=== PATIENT | male | born 1950 | race Caucasian/White ===

== ENCOUNTER 2016-08-20 09:52 | Inpatient (IN) | payer MEDICARE ==
[~2016-08-20] VITALS: Ht 180.3 cm; Wt 115.8 kg
[2016-08-20] VITALS (7 sets, daily range): BP systolic 123–155; BP diastolic 68–91; PULSE 112–136; RESP 15–20; TEMP 97.9–100.8; O2SAT 93–98
[2016-08-20 10:12] LABS: BLOOD, URINE LARGE (NEG); GLUCOSE,URINE NEG (NEG); KETONE, URINE 40 mg/dL (NEG); PH, URINE 5.5 (5.0-8.5)
[2016-08-20 10:17] LABS: NITRITE,URINE POS (NEG)
[2016-08-20 10:18] LABS: METHOD OF COLLECTION CLEAN CATCH; URINE COLOR YELLOW (YELLW/STRAW); WBC, URINE INNUM /hpf (0-5)
[2016-08-20 10:19] LABS: BACTERIA, URINE MANY /hpf; COMMENT (UR) CULTURE INDICATED; CULTURE IF INDICATED CULTURE INDICATED; SQUAMOUS EPITHELIAL CELL URINE 0-5 /hpf (0-5)
[2016-08-20] MEDS ORDERED: LEVEMIR SQ (10:32)
[2016-08-20] MEDS ORDERED: [UNRECOGNIZED DRUG - CODE] PO (10:32)
[2016-08-20] MEDS ORDERED: METF500T PO (10:32)
[2016-08-20] MEDS ORDERED: ATOR20TA15 PO (10:32)
[2016-08-20] MEDS ORDERED: BENI20TA3 PO (10:32)
[2016-08-20] MEDS ORDERED: LOSA50TA2 PO (10:32)
[2016-08-20] MEDS ORDERED: PIPERACIL-TAZO 4.5 GM PREMIX 100 ML IV STA (11:01)
--- NOTE | 2016-08-20 11:09 | PD ---
HPI Chief Complaint: Complaint Time Seen by Provider: 10:54 Travel History International Travel<30 days: No Contact w/Intl Traveler<30days: No Traveled to known affect area: No History of Present Illness HPI Patient is a 66-year-old male who presents to emergency room with complaints of not feeling well. Patient reports that he has been having dysuria, urinary urgency and frequency for the past week. Reports that he currently is not on antibiotics. Patient reports that he is here in [place] from [place]. Patient reports that on Wednesday, he had an MRI/fusion prostate biopsy while in [place] for evaluation of prostate cancer. Patient reports that prior to his surgery, he was given antibiotics as he did have a recent right hip surgery in April. Patient reports that he flew to [place] as he had a family illness and has been here in [place] since Wednesday. He was not sent home on any antibiotics for after his procedure. Patient reports that after he landed off the plane on Wednesday, his legs feel crampy. Reports that on Wednesday, he was not feeling well and laid in bed all day. Patient reports that he felt weak, reports that he had been having fevers with a tmax of 102.8. Reports that he did take ibuprofen for fever but once the medications ran out - he would develop fever again. Patient denies chest pain or shortness of breath. Denies cough or congestion. Reports that he went to urgent care center this morning and was told that he had a "raging UTI" and that he would have to go to the hospital for IV antibiotics. PFSH Past Medical History High Cholesterol: Yes Diabetes: Yes Patient Takes Glucophage: Yes Hypertension: Yes Influenza Vaccination: No Past Surgical History Abdominal Surgery: Yes (MULITIPLE HERNIA REPAIRS, WITH MUSCLES TAKEN FROM BILAT LEGS) Social History Alcohol Use: Yes (SOCIAL) Tobacco Use: No Substance Use: No Allergies-Medications (Allergen,Severity, Reaction): Coded Allergies: No Known Allergies (Unverified , 08/20/16) Reported Meds & Prescriptions Reported Meds & Active Scripts Active Reported Losartan-Hydrochlorothiazide 50-12.5 Mg Tab 1 Tab PO DAILY Matzim LA (Diltiazem ER 24 HR) 360 Mg Aashish 360 Mg PO DAILY Levemir Inj (Insulin Detemir) 1,000 unit/ 10 ML Vial 40 Units SQ BID Do not mix with any other Insulin. Metformin (Metformin HCl) 500 Mg Tab 500 Mg PO QID With meals Benicar Hct (Olmesartan-Hydrochlorothiazide) 20-12.5 mg Tab 1 Tab PO DAILY Atorvastatin (Atorvastatin Calcium) 20 Mg Tab 20 Mg PO HS Review of Systems General / Constitutional: Positive: Fever, Chills Eyes: No: Visual changes HENT: No: Headaches Cardiovascular: No: Chest Pain or Discomfort Respiratory: No: Shortness of Breath Gastrointestinal: No: Abdominal Pain Genitourinary: Positive: Urgency, Frequency, Dysuria, Decreased Urinary Output , Hesitancy Musculoskeletal: No: Pain Skin: No Rash Neurologic: No: Weakness Psychiatric: No: Depression Endocrine: No: Polydipsia Hematologic/Lymphatic: No: Easy Bruising Physical Exam Narrative GENERAL: Moderate distress SKIN: Focused skin assessment warm/dry. HEAD: Atraumatic. Normocephalic. EYES: Pupils equal and round. No scleral icterus. No injection or drainage. ENT: No nasal bleeding or discharge. Mucous membranes pink and moist. NECK: Trachea midline. No JVD. CARDIOVASCULAR: Tachycardic. No murmur appreciated. RESPIRATORY: No accessory muscle use. Clear to auscultation. Breath sounds equal bilaterally. GASTROINTESTINAL: Abdomen soft, non-tender, nondistended. Hepatic and splenic margins not palpable. MUSCULOSKELETAL: No obvious deformities. No clubbing. No cyanosis. No edema. NEUROLOGICAL: Awake and alert.. Normal speech. PSYCHIATRIC: Appropriate mood and affect; insight and judgment normal. Data Data Last Documented VS Vital Signs Date Time Temp Pulse Resp B/P Pulse Ox O2 Delivery O2 Flow Rate FiO2 08/20/16 12:36 98.3 112 15 143/68 98 Room Air Orders Urinalysis - C+S If Indicated (08/20/16 10:03) Urine Culture (08/20/16 10:06) Complete Blood Count With Diff (08/20/16 11:01) Comprehensive Metabolic Panel (08/20/16 11:01) Lactic Acid Sepsis Protocol (08/20/16 11:01) Influenzae A/B Antigen (08/20/16 11:01) Blood Culture (08/20/16 11:01) Chest, Single Ap (08/20/16 11:01) Blood Glucose (08/20/16 11:01) Ecg Monitoring (08/20/16 11:01) Iv Access Insert/Monitor (08/20/16 11:01) Oximetry (08/20/16 11:01) Oxygen Administration (08/20/16 11:01) Piperacil-Tazo 4.5 Gm Premix (Zosyn 4.5 (08/20/16 11:01) Sodium Chlor 0.9% 1000 Ml Inj (Ns 1000 M (08/20/16 11:15) Sodium Chlor 0.9% 1000 Ml Inj (Ns 1000 M (08/20/16 11:15) Us Leg Venous Doppler Bilat (08/20/16 ) Labs Laboratory Tests Test 08/20/16 08/20/16 10:06 11:28 Urine Collection Type CLEAN CATCH Urine Color YELLOW Urine Turbidity MARKED Urine pH 5.5 Urine Specific [place] 1.026 Urine Protein 300 OR GREATER mg/dL Urine Glucose (UA) NEG mg/dL Urine Ketones 40 mg/dL Urine Occult Blood LARGE Urine Nitrite POS Urine Bilirubin NEG Urine Leukocyte Esterase MOD Urine RBC 25-49 /hpf Urine WBC INNUM /hpf Urine WBC Clumps MOD Urine Squamous Epithelial 0-5 /hpf Cells Urine Renal Epithelial Cells 6-8 /hpf Urine Bacteria MANY /hpf Microscopic Urinalysis Comment CULTURE INDICATED Urine Collection Time 10:06 White Blood Count 14.7 TH/MM3 Red Blood Count 5.04 MIL/MM3 Hemoglobin 15.7 GM/DL Hematocrit 45.5 % Mean Corpuscular Volume 90.2 FL Mean Corpuscular Hemoglobin 31.1 PG Mean Corpuscular Hemoglobin 34.5 % Concent Red Cell Distribution Width 13.4 % Platelet Count 153 TH/MM3 Mean Platelet Volume 8.5 FL Neutrophils (%) (Auto) 86.9 % Lymphocytes (%) (Auto) 6.3 % Monocytes (%) (Auto) 6.6 % Eosinophils (%) (Auto) 0.0 % Basophils (%) (Auto) 0.2 % Neutrophils # (Auto) 12.8 TH/MM3 Lymphocytes # (Auto) 0.9 TH/MM3 Monocytes # (Auto) 1.0 TH/MM3 Eosinophils # (Auto) 0.0 TH/MM3 Basophils # (Auto) 0.0 TH/MM3 CBC Comment DIFF FINAL Differential Comment Sodium Level 137 MEQ/L Potassium Level 3.8 MEQ/L Chloride Level 101 MEQ/L Carbon Dioxide Level 27.7 MEQ/L Anion Gap 8 MEQ/L Blood Urea Nitrogen 15 MG/DL Creatinine 0.87 MG/DL Estimat Glomerular Filtration 88 ML/MIN Rate Random Glucose 194 MG/DL Lactic Acid Level 1.7 mmol/L Calcium Level 9.3 MG/DL Total Bilirubin 1.1 MG/DL Aspartate Amino Transf 11 U/L (AST/SGOT) Alanine Aminotransferase 18 U/L (ALT/SGPT) Alkaline Phosphatase 70 U/L Total Protein 7.2 GM/DL Albumin 3.3 GM/DL MDM Medical Decision Making Medical Screen Exam Complete: Yes Emergency Medical Condition: Yes Interpretation(s) Vital Signs Date Time Temp Pulse Resp B/P Pulse Ox O2 Delivery O2 Flow Rate FiO2 08/20/16 09:59 97.9 136 18 123/81 95 Differential Diagnosis Urosepsis, PE, DVT, electrolyte abnormality, pneumonia Narrative Course Patient is a 66-year-old male from [place] with history of a recent MRI/fusion and prostate biopsy on Wednesday at [place] presents to ER not feeling well. Reports multiple complaints: 1) Patient reports that he has been having increased cramps to his calf since Wednesday after he landed here in [place]. Ultrasound of legs ordered to rule out DVT. 2) UTI: Patient reports that he was seen at an urgent care center this morning and was told that he has a "raging UTI", patient does have a UTI while in the emergency today, urine culture sent. Patient is tachycardic, was febrile at home, essentially patient presents with presumed sepsis. We'll treat with Zosyn as patient did have recent urological procedure. Patient has been pancultured at this time given his vital signs. Patient is tachycardic on exam , tachycardic secondary to sepsis versus PE. Lactic acidosis was ordered, IV fluids ordered for patient as well. Laboratory Tests Test 08/20/16 08/20/16 10:06 11:28 Urine Collection Type CLEAN CATCH Urine Color YELLOW (YELLW/STRAW) Urine Turbidity MARKED (CLEAR) Urine pH 5.5 (5.0-8.5) Urine Specific [place] 1.026 (1.002-1.035) Urine Protein 300 OR GREATER mg/dL (NEG-TRACE) Urine Glucose (UA) NEG mg/dL (NEG) Urine Ketones 40 mg/dL (NEG) Urine Occult Blood LARGE (NEG) Urine Nitrite POS (NEG) Urine Bilirubin NEG (NEG) Urine Leukocyte Esterase MOD (NEG) Urine RBC 25-49 /hpf (0-3) Urine WBC INNUM /hpf (0-5) Urine WBC Clumps MOD (NONE) Urine Squamous Epithelial 0-5 /hpf (0-5) Cells Urine Renal Epithelial Cells 6-8 /hpf (NONE) Urine Bacteria MANY /hpf (NONE) Microscopic Urinalysis Comment CULTURE INDICATED Urine Collection Time 10:06 White Blood Count 14.7 TH/MM3 (4.0-11.0) Red Blood Count 5.04 MIL/MM3 (4.50-5.90) Hemoglobin 15.7 GM/DL (13.0-17.0) Hematocrit 45.5 % (39.0-51.0) Mean Corpuscular Volume 90.2 FL (80.0-100.0) Mean Corpuscular Hemoglobin 31.1 PG (27.0-34.0) Mean Corpuscular Hemoglobin 34.5 % Concent (32.0-36.0) Red Cell Distribution Width 13.4 % (11.6-17.2) Platelet Count 153 TH/MM3 (150-450) Mean Platelet Volume 8.5 FL (7.0-11.0) Neutrophils (%) (Auto) 86.9 % (16.0-70.0) Lymphocytes (%) (Auto) 6.3 % (9.0-44.0) Monocytes (%) (Auto) 6.6 % (0.0-8.0) Eosinophils (%) (Auto) 0.0 % (0.0-4.0) Basophils (%) (Auto) 0.2 % (0.0-2.0) Neutrophils # (Auto) 12.8 TH/MM3 (1.8-7.7) Lymphocytes # (Auto) 0.9 TH/MM3 (1.0-4.8) Monocytes # (Auto) 1.0 TH/MM3 (0-0.9) Eosinophils # (Auto) 0.0 TH/MM3 (0-0.4) Basophils # (Auto) 0.0 TH/MM3 (0-0.2) CBC Comment DIFF FINAL Differential Comment Sodium Level 137 MEQ/L (136-145) Potassium Level 3.8 MEQ/L (3.5-5.1) Chloride Level 101 MEQ/L (98-107) Carbon Dioxide Level 27.7 MEQ/L (21.0-32.0) Anion Gap 8 MEQ/L (5-15) Blood Urea Nitrogen 15 MG/DL (7-18) Creatinine 0.87 MG/DL (0.60-1.30) Estimat Glomerular Filtration 88 ML/MIN (>89) Rate Random Glucose 194 MG/DL (74-106) Lactic Acid Level 1.7 mmol/L (0.4-2.0) Calcium Level 9.3 MG/DL (8.5-10.1) Total Bilirubin 1.1 MG/DL (0.2-1.0) Aspartate Amino Transf 11 U/L (15-37) (AST/SGOT) Alanine Aminotransferase 18 U/L (12-78) (ALT/SGPT) Alkaline Phosphatase 70 U/L (45-117) Total Protein 7.2 GM/DL (6.4-8.2) Albumin 3.3 GM/DL (3.4-5.0) Microbiology Date/Time Procedure Status Source Growth 08/20/16 10:06 Urine Culture Received Urine Clean Catch Pending 08/20/16 11:15 Aerobic Blood Culture Received Blood Peripheral Pending 08/20/16 11:15 Anaerobic Blood Culture Received Blood Peripheral Pending 08/20/16 11:28 Aerobic Blood Culture Received Blood Peripheral Pending 08/20/16 11:28 Anaerobic Blood Culture Received Blood Peripheral Pending 08/20/16 11:28 Influenza Types A,B Antigen (INA) - Final Complete Nasal Aspirate NEGATIVE FOR FLU A AND B ANTIGEN.... Last Impressions Chest X-Ray 08/20/16 1101 Signed Impressions: Service Date/Time: August 11:20 - CONCLUSION: 1. No acute cardiopulmonary disease. 2. Elevation of the right hemidiaphragm. Walter Morris MD Lower Extremity Ultrasound 08/20/16 0000 Signed Impressions: Service Date/Time: August 12:02 - CONCLUSION: No evidence of deep venous thrombosis within the lower extremities. Walter Morris MD Sepsis Criteria SIRS Criteria (2 or more): Heart rate over 90, WBC > 12160, < 4000 or > 10% bands Criteria Outcome: Meets sepsis criteria Physician Communication Physician Communication case reviewed with dr romero who accepts pt to service Diagnosis Primary Impression: Sepsis Qualified Code: A41.9 - Sepsis, due to unspecified organism Additional Impression: UTI (urinary tract infection) Qualified Code: N30.01 - Acute cystitis with hematuria Admitting Information Admitting Physician Requests: Admit Joy Ceron DO Aug 20, 2016 11:09
[2016-08-20] MEDS ORDERED: SODIUM CHLOR 0.9% 1000 ML INJ 1,000 ML IV ONE ×2 (11:15)
--- NOTE | 2016-08-20 11:33 | RADHPO ---
EXAM DATE/TIME: 08/20/2016 11:20 [facility] COMPARISON: No previous studies available for comparison. INDICATIONS : Fever; possible infection post prostate biopsy. MEDICAL HISTORY : Hypertension. Diabetes mellitus type II. SURGICAL HISTORY : None. ENCOUNTER: Initial ACUITY: 1 day PAIN SCORE: 0/10 LOCATION: Bilateral chest FINDINGS: There is elevation of the right hemidiaphragm. The heart and mediastinal structures are normal. The pulmonary vascular pattern is normal. The lungs are clear. CONCLUSION: 1. No acute cardiopulmonary disease. 2. Elevation of the right hemidiaphragm. Walter Morris MD on August 20, 2016 at 11:26 Board Certified Radiologist. This report was verified electronically.
[2016-08-20 11:35] LABS: AUTOMATED NEUTROPHIL # 12.8 TH/MM3 (1.8-7.7); BASOPHIL % 0.2 % (0.0-2.0); HEMATOCRIT 45.5 % (39.0-51.0); LYMPH % 6.3 % (9.0-44.0); LYMPHOCYTE # 0.9 TH/MM3 (1.0-4.8); MEAN CELL VOLUME 90.2 FL (80.0-100.0); MEAN CORPUSCULAR HEMOGLOBIN 31.1 PG (27.0-34.0); MEAN CORPUSCULAR HGB CONC 34.5 % (32.0-36.0); MONO % 6.6 % (0.0-8.0); NEUT % 86.9 % (16.0-70.0); PLATELET COUNT 153 TH/MM3 (150-450); RED BLOOD COUNT 5.04 MIL/MM3 (4.50-5.90); RED CELL DISTRIBUTION WIDTH 13.4 % (11.6-17.2); WHITE BLOOD COUNT 14.7 TH/MM3 (4.0-11.0)
[2016-08-20 11:37] LABS: HEMO FLAGS DIFF FINAL
[2016-08-20 11:43] LABS: CHLORIDE 101 MEQ/L (98-107); POTASSIUM 3.8 MEQ/L (3.5-5.1); SODIUM (NA) 137 MEQ/L (136-145)
[2016-08-20 11:47] LABS: ANION GAP 8 MEQ/L (5-15); BICARBONATE 27.7 MEQ/L (21.0-32.0); BLOOD UREA NITROGEN 15 MG/DL (7-18)
[2016-08-20 11:50] LABS: ALT (GPT) 18 U/L (12-78); AST (GOT) 11 U/L (15-37); GLOMERULAR FILTRATION RATE 88 ML/MIN (>89)
[2016-08-20 11:51] LABS: TOTAL BILIRUBIN ADULT 1.1 MG/DL (0.2-1.0)
[2016-08-20 11:53] LABS: ALKALINE PHOSPHATASE 70 U/L (45-117)
--- NOTE | 2016-08-20 12:24 | RADHPO ---
EXAM DATE/TIME: 08/20/2016 12:02 [facility] COMPARISON: No previous studies available for comparison. INDICATIONS : Bilateral lower extremity edema. MEDICAL HISTORY : Hypercholesterolemia. Hypertension. Diabetes. SURGICAL HISTORY : Hernia repair. Right hip surgery. ENCOUNTER: Initial ACUITY: 1 day PAIN SCORE: 3/10 LOCATION: Bilateral legs. TECHNIQUE: Venous ultrasound of the left and right leg was performed from the inguinal ligament to the proximal calf. Real-time, color Doppler and spectral tracing, compression and augmentation techniques were us ed. FINDINGS: RIGHT LEG: There is normal compressibility of the deep venous system from the inguinal region to the proximal ca lf. No echogenic clot is seen in the lumen of the common femoral, femoral, popliteal, and posterior tibial veins. There is a normal response of the venous system to proximal and distal augmentation an d respiration. LEFT LEG: There is normal compressibility of the deep venous system from the inguinal region to the proximal ca lf. No echogenic clot is seen in the lumen of the common femoral, femoral, popliteal, and posterior tibial veins. There is a normal response of the venous system to proximal and distal augmentation an d respiration. CONCLUSION: No evidence of deep venous thrombosis within the lower extremities. Waltre Morris MD on August 20, 2016 at 12:22 Board Certified Radiologist. This report was verified electronically.
[2016-08-20] MEDS ORDERED: hydrALAZINE HCL 20 MG/ML VIAL IV PRN (12:45)
[2016-08-20] MEDS ORDERED: GLUCAGON 1 MG/ML VIAL OTHER PRN (12:45)
[2016-08-20] MEDS ORDERED: BISACODYL 10 MG SUPP RECTAL PRN (12:45)
[2016-08-20] MEDS ORDERED: MORPHINE SULFATE 4 MG/ML INJ IV PRN (12:45)
[2016-08-20] MEDS ORDERED: cloNIDine HCL 0.1 MG TAB PO PRN (12:45)
[2016-08-20] MEDS ORDERED: ENALAPRILAT 1.25 MG/ML VIAL IV PRN (12:45)
[2016-08-20] MEDS ORDERED: ONDANSETRON HCL 4 MG/2 ML VIAL IVP PRN (12:45)
[2016-08-20] MEDS ORDERED: SODIUM CHLORIDE 0.9% FLUSH 10 ML FLUSH IV FLUSH PRN (12:45)
[2016-08-20] MEDS ORDERED: NALOXONE HCL 0.4 MG/ML AMP IV PRN (12:45)
[2016-08-20] MEDS ORDERED: DEXTROSE 50% IN WATER 50 ML VIAL(D50) IV PUSH PRN (12:45)
[2016-08-20] MEDS: SODIUM CHLOR 0.9% 1000 ML INJ 1,000 ML IV SCH (12:58)
[2016-08-20] MEDS: ACETAMINOPHEN 325 MG TAB PO PRN (12:58)
[2016-08-20] MEDS: DOCUSATE SODIUM 100 MG CAP PO SCH ×2 (13:02→21:31)
--- NOTE | 2016-08-20 14:40 | HHI.HP ---
[facility] Service [facility] Primary Care Physician Non-Staff Admission Diagnosis Sepsis from UTI Diagnoses: Chief Complaint: UTI symptoms Travel History International Travel<30 Days: No Contact w/Intl Traveler <30 Da: No Traveled to Known Affected Are: No Sepsis Criteria SIRS Criteria (2 or more): Temp > 100.9 or < 96.8, WBC > 69183, < 4000 or > 10 % bands Sepsis Criteria (SIRS+source): Infect source susp/known Criteria Outcome: Meets SIRS criteria, Meets sepsis criteria History of Present Illness This is a 66-year-old male who presents to emergency room with UTI symptoms. Patient reports that he has been having dysuria, urinary urgency and frequency. He is here in [place] from [place] because of family situation. Patient reports that on Wednesday, he had an MRI/US fusion transrectal prostate biopsy while in [place] for evaluation of prostate cancer secondary to elevated PSA and strong family history of prostate cancer. Patient reports that prior to his surgery, he was given po and IV antibiotics as he did have a recent right hip surgery in April. The following day he flew to [place] and noted bilateral lower extremity cramping. The next day he did not feel well and laid in bed all day associated with nausea, dizziness and achiness. He had fever and chills and took ibuprofen which provided temporary relief. Denies abdominal , back and right hip pain. He went to urgent care center this morning and was told that he had a "raging UTI" and that he would have to go to the hospital for IV antibiotics. Review of Systems Constitutional: COMPLAINS OF: Diaphoretic episodes, Fatigue, Fever, Chills, Dizziness, DENIES: Weight gain, Weight loss, Change in appetite, Night Sweats Endocrine: DENIES: Heat/cold intolerance, Polydipsia, Polyuria, Polyphagia Eyes: DENIES: Blurred vision, Diplopia, Vision loss, Photosensitivity Ears, nose, mouth, throat: DENIES: Tinnitus, Vertigo, Throat pain, Hoarseness, Epistaxis, Odynophagia Respiratory: DENIES: Cough, Wheezing, Hemoptysis, Sputum production, Shortness of breath Cardiovascular: DENIES: Chest pain, Palpitations, Syncope, Dyspnea on Exertion , PND, Lower Extremity Edema, Orthopnea, Claudication Gastrointestinal: COMPLAINS OF: Nausea, DENIES: Abdominal pain, Black stools, Bloody stools, Constipation, Diarrhea, Vomiting, Difficulty Swallowing, Anorexia Genitourinary: COMPLAINS OF: Urinary frequency, Urgency, Dysuria, DENIES: Urinary incontinence, Hematuria, Nocturia, Penile Discharge Integumentary: DENIES: Rash Neurologic: DENIES: Headache, Localized weakness, Seizures, Tremor, Poor Balance Psychiatric: DENIES: Anxiety, Confusion, Depression, Hallucinations, Agitation , Suicidal Ideation, Homicidal Ideation, Delusions Past Family Social History Past Medical History History of hyperlipidemia, diabetes mellitus and hypertension Past Surgical History Hernia repair with transposition of muscles from bilateral thighs Reported Medications Losartan-Hydrochlorothiazide 50-12.5 Mg Tab 1 Tab PO DAILY Matzim LA (Diltiazem ER 24 HR) 360 Mg Aashish 360 Mg PO DAILY Levemir Inj (Insulin Detemir) 1,000 unit/ 10 ML Vial 40 Units SQ BID Do not mix with any other Insulin. Metformin (Metformin HCl) 500 Mg Tab 500 Mg PO QID With meals Benicar Hct (Olmesartan-Hydrochlorothiazide) 20-12.5 mg Tab 1 Tab PO DAILY Atorvastatin (Atorvastatin Calcium) 20 Mg Tab 20 Mg PO HS Allergies: Coded Allergies: No Known Allergies (Unverified , 08/20/16) Family History Also lung cancer and coronary artery disease Social History Occasional alcohol use. Does not smoke or use illicit drugs Physical Exam Vital Signs Vital Signs Date Time Temp Pulse Resp B/P Pulse Ox O2 Delivery O2 Flow Rate FiO2 08/20/16 13:52 98.3 108 15 135/71 98 08/20/16 12:36 98.3 112 15 143/68 98 Room Air 08/20/16 12:30 98 21 08/20/16 11:15 98 Room Air 08/20/16 11:15 98 Room Air 08/20/16 09:59 97.9 136 18 123/81 95 Physical Exam GENERAL: This is a well-nourished, well-developed patient, in no apparent distress. Looks weak SKIN: No rashes, ecchymoses or lesions. Cool and dry. HEAD: Atraumatic. Normocephalic. No temporal or scalp tenderness. EYES: Pupils equal round and reactive. Extraocular motions intact. No scleral icterus. No injection or drainage. ENT: Nose without bleeding, purulent drainage or septal hematoma. Throat without erythema, tonsillar hypertrophy or exudate. Uvula midline. Airway patent. NECK: Trachea midline. No JVD or lymphadenopathy. Supple, nontender, no meningeal signs. CARDIOVASCULAR: Regular rate and rhythm without murmurs, gallops, or rubs. RESPIRATORY: Clear to auscultation. Breath sounds equal bilaterally. No wheezes , rales, or rhonchi. GASTROINTESTINAL: Abdomen soft, non-tender, nondistended. Reducible incisional hernia. No guarding. CVA tenderness MUSCULOSKELETAL: Extremities without clubbing, cyanosis, or edema. No joint tenderness, effusion, or edema noted. No calf tenderness. Negative Homans sign bilaterally. NEUROLOGICAL: Awake and alert. Cranial nerves II through XII intact. Motor and sensory grossly within normal limits. Five out of 5 muscle strength in all muscle groups. Normal speech. Laboratory Laboratory Tests Test 08/20/16 08/20/16 10:06 11:28 Urine Collection Type CLEAN CATCH Urine Color YELLOW Urine Turbidity MARKED Urine pH 5.5 Urine Specific [place] 1.026 Urine Protein 300 OR GREATER Urine Glucose (UA) NEG Urine Ketones 40 Urine Occult Blood LARGE Urine Nitrite POS Urine Bilirubin NEG Urine Leukocyte Esterase MOD Urine RBC 25-49 Urine WBC INNUM Urine WBC Clumps MOD Urine Squamous Epithelial 0-5 Cells Urine Renal Epithelial Cells 6-8 Urine Bacteria MANY Microscopic Urinalysis Comment CULTURE INDICATED Urine Collection Time 10:06 White Blood Count 14.7 Red Blood Count 5.04 Hemoglobin 15.7 Hematocrit 45.5 Mean Corpuscular Volume 90.2 Mean Corpuscular Hemoglobin 31.1 Mean Corpuscular Hemoglobin 34.5 Concent Red Cell Distribution Width 13.4 Platelet Count 153 Mean Platelet Volume 8.5 Neutrophils (%) (Auto) 86.9 Lymphocytes (%) (Auto) 6.3 Monocytes (%) (Auto) 6.6 Eosinophils (%) (Auto) 0.0 Basophils (%) (Auto) 0.2 Neutrophils # (Auto) 12.8 Lymphocytes # (Auto) 0.9 Monocytes # (Auto) 1.0 Eosinophils # (Auto) 0.0 Basophils # (Auto) 0.0 CBC Comment DIFF FINAL Differential Comment Sodium Level 137 Potassium Level 3.8 Chloride Level 101 Carbon Dioxide Level 27.7 Anion Gap 8 Blood Urea Nitrogen 15 Creatinine 0.87 Estimat Glomerular Filtration 88 Rate Random Glucose 194 Lactic Acid Level 1.7 Calcium Level 9.3 Total Bilirubin 1.1 Aspartate Amino Transf 11 (AST/SGOT) Alanine Aminotransferase 18 (ALT/SGPT) Alkaline Phosphatase 70 Total Protein 7.2 Albumin 3.3 Date/Time Procedure Status Source Growth 08/20/16 11:28 Influenza Types A,B Antigen (INA) - Final Complete Nasal Aspirate NEGATIVE FOR FLU A AND B ANTIGEN.... 08/20/16 11:28 Aerobic Blood Culture Received Blood Peripheral Pending 08/20/16 11:28 Anaerobic Blood Culture Received Blood Peripheral Pending 08/20/16 10:06 Urine Culture Received Urine Clean Catch Pending Result Diagram: 08/20/16 1128 08/20/16 1128 Imaging Last Impressions Chest X-Ray 08/20/16 1101 Signed Impressions: Service Date/Time: August 11:20 - CONCLUSION: 1. No acute cardiopulmonary disease. 2. Elevation of the right hemidiaphragm. Walter Morris MD Lower Extremity Ultrasound 08/20/16 0000 Signed Impressions: Service Date/Time: August 12:02 - CONCLUSION: No evidence of deep venous thrombosis within the lower extremities. Walter Morris MD Assessment and Plan Problem List: (1) UTI (urinary tract infection) ICD Code: N39.0 Status: Acute (2) Sepsis ICD Code: A41.9 Status: Acute Assessment and Plan This is a 66-year-old male who presents to emergency room with UTI symptoms. Also meets criteria for sepsis. He had recent MRI/US fusion transrectal prostate biopsy last Wednesday Sepsis secondary to UTI. Continue IVs Zosyn and monitor cultures. Consider CT scan of the abdomen pelvis if the improvement within 24 hours. Pain management with Lortab and IV morphine. Chronic medical conditions of hyperlipidemia, diabetes mellitus and hypertension. Continue outpatient medications as appropriate. Hold antihypertensives for now and consider restarting tomorrow. Monitor fingersticks with Surgicel coverage Deconditioning secondary to sepsis. Physical therapy evaluation DVT prophylaxis with SCD and early ambulation. Consider pharmacological prophylaxis Discussed Condition With pt and sister Physician Certification 2 Midnight Certification Type: Admission for Inpatient Services Order for Inpatient Services The services are ordered in accordance with Medicare regulations or non- Medicare payer requirements, as applicable. In the case of services not specified as inpatient-only, they are appropriately provided as inpatient services in accordance with the 2-midnight benchmark. Estimated LOS (days): 2 days is the estimated time the patient will need to remain in the hospital, assuming treatment plan goals are met and no additional complications. Post-Hospital Plan: Home Health Problem Qualifiers (1) UTI (urinary tract infection): Qualified Code: N30.01 - Acute cystitis with hematuria (2) Sepsis: Qualified Code: A41.9 - Sepsis, due to unspecified organism Anselmo Mcdermott MD Aug 20, 2016 14:40
[2016-08-20] MEDS: INSULIN ASPART SUPPLEMENTAL SCALE SQ SCH ×2 (15:35→21:30)
[2016-08-20] MEDS: metFORMIN HCL 500 MG TAB PO SCH (18:28)
[2016-08-20] MEDS: PIPERACIL-TAZO 3.375 GM PREMIX 50 ML IV SCH ×2 (18:28→23:45)
[2016-08-20] MEDS: SODIUM CHLORIDE 0.9% FLUSH 10 ML FLUSH IV FLUSH SCH (21:00)
[2016-08-20] MEDS: INSULIN DETEMIR 100 UNITS/ML VIAL SQ SCH (21:29)
[2016-08-20] MEDS: ATORVASTATIN 20 MG TAB PO SCH (21:31)
[2016-08-20] MEDS: ACETAMINOPHEN/HYDROcodone 325 MG/5 MG TAB PO PRN (21:32)
[2016-08-21] VITALS (12 sets, daily range): BP systolic 96–181; BP diastolic 58–96; PULSE 98–132; RESP 17–26; TEMP 97.7–103.4; O2SAT 92–96
[2016-08-21] MEDS: ACETAMINOPHEN 325 MG TAB PO PRN ×2 (04:27→11:14)
[2016-08-21] MEDS: PIPERACIL-TAZO 3.375 GM PREMIX 50 ML IV SCH ×2 (05:50→11:28)
[2016-08-21] MEDS: INSULIN ASPART SUPPLEMENTAL SCALE SQ SCH ×4 (06:25→21:48)
[2016-08-21] MEDS: ACETAMINOPHEN/HYDROcodone 325 MG/5 MG TAB PO PRN (06:32)
[2016-08-21] MEDS: SODIUM CHLOR 0.9% 1000 ML INJ 1,000 ML IV SCH ×3 (06:32→18:41)
[2016-08-21 07:58] LABS: AUTOMATED NEUTROPHIL # 8.2 TH/MM3 (1.8-7.7); BASOPHIL % 0.2 % (0.0-2.0); EOSINOPHIL % 0.1 % (0.0-4.0); HEMATOCRIT 41.7 % (39.0-51.0); LYMPH % 6.1 % (9.0-44.0); LYMPHOCYTE # 0.6 TH/MM3 (1.0-4.8); MEAN CELL VOLUME 91.6 FL (80.0-100.0); MEAN CORPUSCULAR HEMOGLOBIN 30.7 PG (27.0-34.0); MEAN CORPUSCULAR HGB CONC 33.5 % (32.0-36.0); MONO % 5.8 % (0.0-8.0); NEUT % 87.8 % (16.0-70.0); PLATELET COUNT 134 TH/MM3 (150-450); RED BLOOD COUNT 4.55 MIL/MM3 (4.50-5.90); RED CELL DISTRIBUTION WIDTH 13.7 % (11.6-17.2); WHITE BLOOD COUNT 9.3 TH/MM3 (4.0-11.0)
[2016-08-21] MEDS: SODIUM CHLORIDE 0.9% FLUSH 10 ML FLUSH IV FLUSH SCH ×2 (08:00→21:49)
[2016-08-21 08:07] LABS: HEMO FLAGS DIFF FINAL
[2016-08-21 08:08] LABS: POTASSIUM 3.4 MEQ/L (3.5-5.1)
[2016-08-21 08:11] LABS: BICARBONATE 26.3 MEQ/L (21.0-32.0)
[2016-08-21] MEDS: metFORMIN HCL 500 MG TAB PO SCH (08:34)
[2016-08-21] MEDS: DOCUSATE SODIUM 100 MG CAP PO SCH ×2 (08:34→21:48)
[2016-08-21] MEDS: INSULIN DETEMIR 100 UNITS/ML VIAL SQ SCH ×2 (08:45→21:48)
[2016-08-21] MEDS: ACETAMINOPHEN/HYDROcodone 325 MG/7.5 MG TAB PO PRN ×2 (11:14→14:57)
--- NOTE | 2016-08-21 11:28 | HHI.PR ---
Subjective Remarks Follow up for sepsis due to UTI. Patient is doing well. However, he has persistent fever and tachycardia. Patient also reports strong urge to urinate but that he cannot do it. Objective Vitals Vital Signs Date Time Temp Pulse Resp B/P Pulse Ox O2 Delivery O2 Flow Rate FiO2 08/21/16 08:00 99.1 112 20 142/83 94 08/21/16 07:32 20 08/21/16 04:00 102.5 121 18 148/96 92 08/21/16 00:00 100.1 116 20 154/96 94 08/20/16 20:00 100.8 118 20 155/91 96 08/20/16 20:00 122 08/20/16 15:00 99.6 114 15 148/79 93 08/20/16 13:52 98.3 108 15 135/71 98 08/20/16 12:36 98.3 112 15 143/68 98 Room Air 08/20/16 12:30 98 21 I/O 08/20/16 08/20/16 08/20/16 08/21/16 08/21/16 08/21/16 07:00 15:00 23:00 07:00 15:00 23:00 Intake Total 820 ml 1700 ml Output Total 725 ml 475 ml Balance 95 ml 1225 ml Intake Oral 820 ml 500 ml IV Total 1200 ml Output Urine Total 725 ml 475 ml # Bowel Movements 0 0 Result Diagram: 08/21/16 0715 08/21/16 0715 Imaging Last Impressions Chest X-Ray 08/20/16 1101 Signed Impressions: Service Date/Time: August 11:20 - CONCLUSION: 1. No acute cardiopulmonary disease. 2. Elevation of the right hemidiaphragm. Walter Morris MD Lower Extremity Ultrasound 08/20/16 0000 Signed Impressions: Service Date/Time: August 12:02 - CONCLUSION: No evidence of deep venous thrombosis within the lower extremities. Walter Morris MD Objective Remarks GENERAL: AOX3, NAD. SKIN: Warm and dry. HEAD: Normocephalic. EYES: No scleral icterus. No injection or drainage. NECK: Supple, trachea midline. No JVD or lymphadenopathy. CARDIOVASCULAR: Regular rate and rhythm without murmurs, gallops, or rubs. RESPIRATORY: Breath sounds equal bilaterally. No accessory muscle use. GASTROINTESTINAL: Abdomen soft, non-tender, nondistended. MUSCULOSKELETAL: No cyanosis, or edema. BACK: Nontender without obvious deformity. No CVA tenderness. Procedures None. A/P Problem List: (1) UTI (urinary tract infection) ICD Code: N39.0 Status: Acute (2) Sepsis ICD Code: A41.9 Status: Acute Assessment and Plan This is a 66-year-old male who presents to emergency room with UTI symptoms. Also meets criteria for sepsis. He had recent MRI/US fusion transrectal prostate biopsy last Wednesday08/17/2016 in [place]. - Sepsis secondary to UTI - Urinary tract infection due to GNR. - Continue IVs Zosyn and monitor cultures. Blood cx negative so far. - Urine cx growing GNR. - Will also initiate Vancomycin for now. However, ESBL GNR is a concern. - Will wait for ID input regarding switching abx to Meropenem. - Will consult Infectious disease. - There is some concern over right hip prosthetic device. Currently, patient does not have any pain from right hip. - Will consider imagining studies of right hip depending on blood/urine cx and clinical course. - Urinary retention - Will start Hutchison catheter. - Tamsulosin 0.4mg Qday. - Hypertension - Will continue ARB-HCTZ combination. Start Amlodipine 5mg Qday. - Continue PRN Clonidine and Hydralazine. - Hyperlipidemia - Continue atorvastatin 20 mg daily. - Diabetes mellitus - Continue Levemir 40 units twice a day - Continue sliding scale insulin. - Discontinue metformin for now. Patient may need contrast enhanced imaging studies. Full code. Lovenox. Problem Qualifiers (1) UTI (urinary tract infection): Qualified Code: N30.01 - Acute cystitis with hematuria (2) Sepsis: Qualified Code: A41.9 - Sepsis, due to unspecified organism Silverio Smith DO Aug 21, 2016 11:28 am
[2016-08-21] MEDS ORDERED: TAMSULOSIN HCL 0.4 MG CAP PO ONE (12:00)
[2016-08-21] MEDS ORDERED: VANCOMYCIN INJ 1,250 MG in SODIUM CHLOR 0.9% 250 ML INJ 250 ML IV ONE (13:45)
[2016-08-21] MEDS ORDERED: Vancomycin Consult Pharmacy 1 EA OTHER SCH (14:00)
[2016-08-21] MEDS: ENOXAPARIN SODIUM 40 MG/0.4 ML SYRINGE SQ SCH (14:47)
[2016-08-21] MEDS ORDERED: IBUPROFEN 600 MG TAB PO ONE (15:00)
[2016-08-21] MEDS ORDERED: ACETAMINOPHEN 650 MG SUPP RECTAL ONE (15:00)
--- NOTE | 2016-08-21 15:00 | PD.CONS ---
History of Present Illness Service Infectious disease Consult Requested By Dr Smith Reason for Consult S/p Prostate biopsy- sepsis with UTI _Still with fevers- h/o recent hip replacement Primary Care Physician Non-Staff Diagnoses: (1) Sepsis (2) UTI (urinary tract infection) History of Present Illness Patient has a h/o diabetes mellitus and a strong family h/o prostate cancer so last Wednesday when he was in [place] - he had a MRI guided prostate biopsy ( he says he was given 2 IV and1 oral antibiotic before the procedure) and he was ok post procedure. On Wednesday when he was about to board flight to [place] - he had cramping in the legs- the next day he was sick with fever, chills and very weak. He went to urgent care yesterday and they directed him to hospital. He was started on IV Zosyn- got first dose 11 am yesterday. He has had fevers and early this morning upto 103 degrees. He could not urinate this morning with a lot of discomfort and so a catheter was placed. Review of Systems Constitutional: COMPLAINS OF: Fever, Chills, Change in appetite Endocrine: DENIES: Polydipsia, Polyuria Eyes: DENIES: Blurred vision, Diplopia, Eye inflammation Ears, nose, mouth, throat: DENIES: Hearing loss, Nasal discharge, Oral lesions Respiratory: COMPLAINS OF: Cough, DENIES: Apneas, Hemoptysis, Sputum production Cardiovascular: DENIES: Chest pain, Syncope, Dyspnea on Exertion Gastrointestinal: COMPLAINS OF: Constipation, DENIES: Abdominal pain, Difficulty Swallowing Genitourinary: COMPLAINS OF: Urinary frequency, Dysuria, DENIES: Testicular Pain Musculoskeletal: DENIES: Joint pain, Muscle aches Integumentary: DENIES: Abnormal pigmentation Hematologic/lymphatic: DENIES: Bruising, Lymphadenopathy Neurologic: DENIES: Abnormal gait, Headache, Speech Problems Psychiatric: DENIES: Anxiety, Confusion Past Family Social History Allergies: Coded Allergies: No Known Allergies (Unverified , 08/20/16) Past Medical History History of hyperlipidemia, diabetes mellitus and hypertension Past Surgical History Hernia repair with transposition of muscles from bilateral thighs Reported Medications Losartan-Hydrochlorothiazide 50-12.5 Mg Tab 1 Tab PO DAILY Matzim LA (Diltiazem ER 24 HR) 360 Mg Aashish 360 Mg PO DAILY Levemir Inj (Insulin Detemir) 1,000 unit/ 10 ML Vial 40 Units SQ BID Do not mix with any other Insulin. Metformin (Metformin HCl) 500 Mg Tab 500 Mg PO QID With meals Benicar Hct (Olmesartan-Hydrochlorothiazide) 20-12.5 mg Tab 1 Tab PO DAILY Atorvastatin (Atorvastatin Calcium) 20 Mg Tab 20 Mg PO HS Allergies: Coded Allergies: No Known Allergies (Unverified , 08/20/16) Family History Also lung cancer and coronary artery disease. Prostate cancer Social History Occasional alcohol use. Does not smoke or use illicit drugs Active Ordered Medications IV Vancomycin, Zosyn Physical Exam Vital Signs Vital Signs Date Time Temp Pulse Resp B/P Pulse Ox O2 Delivery O2 Flow Rate FiO2 08/21/16 12:14 20 08/21/16 12:00 103.4 122 20 181/96 92 08/21/16 08:00 99.1 112 20 142/83 94 08/21/16 08:00 98 08/21/16 07:32 20 08/21/16 04:00 102.5 121 18 148/96 92 08/21/16 00:00 100.1 116 20 154/96 94 08/20/16 20:00 100.8 118 20 155/91 96 08/20/16 20:00 122 08/20/16 15:00 99.6 114 15 148/79 93 Physical Exam GENERAL: This is an obese patient, lying flat in bed SKIN: No rashes, ecchymoses or lesions. Cool and dry. HEAD: Atraumatic. Normocephalic. No temporal or scalp tenderness. EYES: Pupils equal round and reactive. Extraocular motions intact. No scleral icterus. No injection or drainage. ENT: Nose without bleeding, purulent drainage or septal hematoma. Throat without erythema, tonsillar hypertrophy or exudate. Uvula midline. Airway patent. NECK: Trachea midline. No JVD or lymphadenopathy. Supple, nontender, no meningeal signs. CARDIOVASCULAR: Tachycardia without murmurs, gallops, or rubs. RESPIRATORY: . Breath sounds equal bilaterally. No rales, or rhonchi. Occasional wheezes GASTROINTESTINAL: Abdomen soft, non-tender, nondistended. No hepato-splenomegaly , or palpable masses. No guarding. MUSCULOSKELETAL: Extremities without clubbing, cyanosis, or edema. No joint tenderness, effusion, or edema noted. No calf tenderness. Negative Homans sign bilaterally. NEUROLOGICAL: Awake and alert. Cranial nerves II through XII intact. Motor and sensory grossly within normal limits. Five out of 5 muscle strength in all muscle groups. Normal speech. Laboratory Laboratory Tests Test 08/21/16 07:15 White Blood Count 9.3 Red Blood Count 4.55 Hemoglobin 14.0 Hematocrit 41.7 Mean Corpuscular Volume 91.6 Mean Corpuscular Hemoglobin 30.7 Mean Corpuscular Hemoglobin 33.5 Concent Red Cell Distribution Width 13.7 Platelet Count 134 Mean Platelet Volume 8.9 Neutrophils (%) (Auto) 87.8 Lymphocytes (%) (Auto) 6.1 Monocytes (%) (Auto) 5.8 Eosinophils (%) (Auto) 0.1 Basophils (%) (Auto) 0.2 Neutrophils # (Auto) 8.2 Lymphocytes # (Auto) 0.6 Monocytes # (Auto) 0.5 Eosinophils # (Auto) 0.0 Basophils # (Auto) 0.0 CBC Comment DIFF FINAL Differential Comment Sodium Level 139 Potassium Level 3.4 Chloride Level 103 Carbon Dioxide Level 26.3 Anion Gap 10 Blood Urea Nitrogen 12 Creatinine 0.67 Estimat Glomerular Filtration 119 Rate Random Glucose 165 Calcium Level 8.6 Date/Time Procedure Status Source Growth 08/20/16 11:28 Influenza Types A,B Antigen (INA) - Final Complete Nasal Aspirate NEGATIVE FOR FLU A AND B ANTIGEN.... 08/20/16 11:28 Aerobic Blood Culture - Preliminary Resulted Blood Peripheral NO GROWTH IN 1 DAY 08/20/16 11:28 Anaerobic Blood Culture - Preliminary Resulted Blood Peripheral NO GROWTH IN 1 DAY 08/20/16 10:06 Urine Culture - Preliminary Resulted Urine Clean Catch Gram Negative Padilla Result Diagram: 08/21/16 0715 08/21/16 0715 Assessment and Plan Problem List: (1) Sepsis Status: Acute (2) UTI (urinary tract infection) Status: Acute Assessment and Plan 1. Follow Blood and Urine cultures closely 2. Leucocytosis resolved . 3. Continue IV Zosyn- will increase dose to 4.5 g IV q6hrs 4. Add Cipro 400 mg IV q 12hrs 5. Stop IV Vancomycin Problem Qualifiers (1) Sepsis: Qualified Code: A41.9 - Sepsis, due to unspecified organism (2) UTI (urinary tract infection): Qualified Code: N30.01 - Acute cystitis with hematuria Pratima Robison MD Aug 21, 2016 15:00
[2016-08-21] MEDS: CIPROFLOXACIN 400 MG PREMIX 200 ML IV SCH (15:53)
[2016-08-21] MEDS ORDERED: VANCOMYCIN INJ 2,000 MG in SODIUM CHLORID 0.9% 500 ML INJ 500 ML IV SCH (16:00)
[2016-08-21] MEDS ORDERED: ACETAMINOPHEN 325 MG TAB PO PRN (16:00)
[2016-08-21] MEDS: PIPERACIL-TAZO 4.5 GM PREMIX 100 ML IV SCH ×2 (16:12→22:21)
[2016-08-21] MEDS ORDERED: METOPROLOL TARTRATE 5 MG/5 ML VIAL IV PUSH PRN (16:15)
[2016-08-21] MEDS: LACTOBACILLUS ACIDOPHILUS TAB PO SCH (21:47)
[2016-08-21] MEDS: ATORVASTATIN 20 MG TAB PO SCH (21:48)
[2016-08-21] MEDS ORDERED: CHLORHEXIDINE GLUCONATE 2 % 1 PACK (2 CLOTHS)(extra cloths) TOPICAL PRN (22:00)
[2016-08-22] VITALS (25 sets, daily range): BP systolic 108–169; BP diastolic 65–92; PULSE 94–128; RESP 13–34; TEMP 98–100.6; O2SAT 93–96
[2016-08-22] MEDS: CIPROFLOXACIN 400 MG PREMIX 200 ML IV SCH ×2 (02:01→14:17)
[2016-08-22] MEDS: CHLORHEXIDINE GLUCONATE 2 % 1 PACK (2 CLOTHS)(taper/protocol) TOPICAL SCH (02:43)
[2016-08-22] MEDS: PIPERACIL-TAZO 4.5 GM PREMIX 100 ML IV SCH ×3 (03:26→16:47)
[2016-08-22] MEDS: ACETAMINOPHEN/HYDROcodone 325 MG/7.5 MG TAB PO PRN ×2 (03:27→09:49)
[2016-08-22] MEDS: SODIUM CHLOR 0.9% 1000 ML INJ 1,000 ML IV SCH ×2 (05:02→14:23)
[2016-08-22] MEDS: INSULIN ASPART SUPPLEMENTAL SCALE SQ SCH ×4 (06:23→20:28)
[2016-08-22] MEDS: SODIUM CHLORIDE 0.9% FLUSH 10 ML FLUSH IV FLUSH SCH ×2 (08:44→20:28)
[2016-08-22] MEDS: TAMSULOSIN HCL 0.4 MG CAP PO SCH (08:45)
[2016-08-22] MEDS: HYDROCHLOROTHIAZIDE 12.5 MG CAP PO SCH (08:45)
[2016-08-22] MEDS: LOSARTAN 50 MG TAB PO SCH (08:45)
[2016-08-22] MEDS: amLODIPine BESYLATE 5 MG TAB PO SCH (08:45)
[2016-08-22] MEDS: INSULIN DETEMIR 100 UNITS/ML VIAL SQ SCH ×2 (08:46→20:28)
[2016-08-22] MEDS: DOCUSATE SODIUM 100 MG CAP PO SCH ×2 (08:46→20:17)
[2016-08-22] MEDS: LACTOBACILLUS ACIDOPHILUS TAB PO SCH ×2 (09:00→20:18)
[2016-08-22] MEDS ORDERED: MAGNESIUM HYDROXIDE SUSP 30 ML CUP PO PRN (09:15)
[2016-08-22] MEDS: IBUPROFEN 600 MG TAB PO PRN (12:38)
--- NOTE | 2016-08-22 12:49 | HHI.PR ---
Subjective Remarks Follow up for sepsis due to UTI, tachycardia. Patient is doing much better today. Sitting in his chair. His heart rate continues to be above 120s. Further discussion indicates - patient was started on Diltiazem by his physician possibly due to tachycardia. He does not have any history of Afib. Diltiazem was likely started to address SVT. Currently denies any CP, SOB, fever, chills. Objective Vitals Vital Signs Date Time Temp Pulse Resp B/P Pulse Ox O2 Delivery O2 Flow Rate FiO2 08/22/16 10:00 128 18 169/92 08/22/16 09:00 124 32 165/91 08/22/16 07:56 99.1 112 25 149/87 93 08/22/16 07:00 110 28 135/78 08/22/16 06:00 98.9 103 21 136/78 96 08/22/16 05:00 112 27 126/74 08/22/16 04:27 17 08/22/16 04:00 105 17 142/76 08/22/16 02:00 118 15 163/83 08/22/16 01:00 106 25 146/84 08/22/16 00:00 99.1 101 26 135/71 08/21/16 23:01 104 26 121/71 08/21/16 22:01 104 22 117/71 08/21/16 21:15 104 21 111/67 08/21/16 20:01 97.7 100 21 96/58 92 08/21/16 20:00 100 08/21/16 19:01 102 19 112/62 08/21/16 16:00 100.2 132 17 120/69 96 08/21/16 15:00 100.8 112 20 159/83 93 I/O 08/21/16 08/21/16 08/21/16 08/22/16 08/22/16 08/22/16 07:00 15:00 23:00 07:00 15:00 23:00 Intake Total 1700 ml 1565 ml 2080 ml Output Total 475 ml 950 ml 350 ml 800 ml Balance 1225 ml 615 ml -350 ml 1280 ml Intake Oral 500 ml 850 ml 480 ml IV Total 1200 ml 715 ml 1600 ml Output Urine Total 475 ml 950 ml 350 ml 800 ml # Bowel Movements 0 0 Result Diagram: 08/21/1615 08/21/16714 Imaging Last Impressions Chest X-Ray 08/20/16 1101 Signed Impressions: Service Date/Time: August 11:20 - CONCLUSION: 1. No acute cardiopulmonary disease. 2. Elevation of the right hemidiaphragm. Walter Morris MD Lower Extremity Ultrasound 08/20/16 0000 Signed Impressions: Service Date/Time: August 12:02 - CONCLUSION: No evidence of deep venous thrombosis within the lower extremities. Walter Morris MD Objective Remarks GENERAL: AOX3, NAD. SKIN: Warm and dry. HEAD: Normocephalic. EYES: No scleral icterus. No injection or drainage. NECK: Supple, trachea midline. No JVD or lymphadenopathy. CARDIOVASCULAR: Tachycardia, regular rhythm without murmurs, gallops, or rubs. RESPIRATORY: Breath sounds equal bilaterally. No accessory muscle use. GASTROINTESTINAL: Abdomen soft, non-tender, nondistended. MUSCULOSKELETAL: No cyanosis, or edema. BACK: Nontender without obvious deformity. No CVA tenderness. Procedures None. A/P Problem List: (1) UTI (urinary tract infection) ICD Code: N39.0 Status: Acute (2) Sepsis ICD Code: A41.9 Status: Acute Assessment and Plan This is a 66-year-old male who presents to emergency room with UTI symptoms. Also meets criteria for sepsis. He had recent MRI/US fusion transrectal prostate biopsy last Wednesday08/17/2016 in [place]. - Sepsis secondary to UTI - Urinary tract infection due to GNR. - Urine cx growing E. Coli sensitive to Ceftriaxone but resistant to Cipro - Cipro discontinued and currently on Ceftriaxone 2g Q24hrs. - Supraventricular tachycardia - Will administer 2.5mg of Metoprolol IV today. - Patient takes Diltiazem 360mg Qday. Will start patient with Diltiazem 60mg QID. - Once heart rate is well controlled, we will switch to long acting CCB. - Urinary retention - Tamsulosin 0.4mg Qday. - Hypertension - Will continue ARB-HCTZ combination as well as Amlodipine 5mg Qday. - Continue PRN Clonidine and Hydralazine. - Hyperlipidemia - Continue atorvastatin 20 mg daily. - Diabetes mellitus - Continue Levemir 40 units twice a day - Continue sliding scale insulin. - Discontinue metformin for now. Patient may need contrast enhanced imaging studies. Full code. Lovenox. Problem Qualifiers (1) UTI (urinary tract infection): Qualified Code: N30.01 - Acute cystitis with hematuria (2) Sepsis: Qualified Code: A41.9 - Sepsis, due to unspecified organism Silverio Smith DO Aug 22, 2016 12:49
[2016-08-22] MEDS ORDERED: METOPROLOL TARTRATE 5 MG/5 ML VIAL IV PUSH PRN (13:00)
[2016-08-22] MEDS: DILTIAZEM HCL 60 MG TAB PO SCH ×2 (14:17→17:42)
[2016-08-22] MEDS: ENOXAPARIN SODIUM 40 MG/0.4 ML SYRINGE SQ SCH (14:17)
[2016-08-22] MEDS: ATORVASTATIN 20 MG TAB PO SCH (20:18)
[2016-08-22 22:14] LABS: BLOOD, URINE LARGE (NEG); KETONE, URINE NEG (NEG); NITRITE,URINE NEG (NEG)
[2016-08-22] MEDS: cefTRIAXone INJ 2,000 MG in SODIUM CHLORIDE 0.9% INJ 100 ML IV SCH (22:17)
[2016-08-22 22:19] LABS: GLUCOSE,URINE 1000 OR GREATER mg/dL (NEG)
[2016-08-22 22:20] LABS: URINE COLOR YELLOW (YELLW/STRAW)
[2016-08-22 22:22] LABS: COMMENT (UR) CATH-CULTURE IND; CULTURE IF INDICATED CATH CULTURE IND; SQUAMOUS EPITHELIAL CELL URINE 0-5 /hpf (0-5)
[2016-08-23] VITALS (19 sets, daily range): BP systolic 136–164; BP diastolic 65–93; PULSE 98–124; RESP 16–35; TEMP 98.1–98.9; O2SAT 93–96
[2016-08-23] MEDS: DILTIAZEM HCL 60 MG TAB PO SCH ×2 (00:33→05:04)
[2016-08-23] MEDS: CHLORHEXIDINE GLUCONATE 2 % 1 PACK (2 CLOTHS)(taper/protocol) TOPICAL SCH (00:34)
[2016-08-23] MEDS ORDERED: VANCOMYCIN TROUGH ONE (03:45)
[2016-08-23] MEDS: SODIUM CHLOR 0.9% 1000 ML INJ 1,000 ML IV SCH ×3 (04:10→17:34)
[2016-08-23] MEDS: INSULIN ASPART SUPPLEMENTAL SCALE SQ SCH ×4 (06:33→21:49)
[2016-08-23 06:37] LABS: AUTOMATED NEUTROPHIL # 3.4 TH/MM3 (1.8-7.7); BASOPHIL % 0.7 % (0.0-2.0); EOSINOPHIL % 0.6 % (0.0-4.0); HEMATOCRIT 40.3 % (39.0-51.0); LYMPH % 15.3 % (9.0-44.0); LYMPHOCYTE # 0.7 TH/MM3 (1.0-4.8); MEAN CELL VOLUME 90.4 FL (80.0-100.0); MEAN CORPUSCULAR HEMOGLOBIN 30.9 PG (27.0-34.0); MEAN CORPUSCULAR HGB CONC 34.2 % (32.0-36.0); MONO % 13.5 % (0.0-8.0); NEUT % 69.9 % (16.0-70.0); PLATELET COUNT 148 TH/MM3 (150-450); RED BLOOD COUNT 4.46 MIL/MM3 (4.50-5.90); RED CELL DISTRIBUTION WIDTH 13.7 % (11.6-17.2); WHITE BLOOD COUNT 4.7 TH/MM3 (4.0-11.0)
[2016-08-23 06:46] LABS: POTASSIUM 3.4 MEQ/L (3.5-5.1)
[2016-08-23 06:48] LABS: HEMO FLAGS AUTO DIFF
[2016-08-23 06:50] LABS: BICARBONATE 28.5 MEQ/L (21.0-32.0)
[2016-08-23 07:18] LABS: BANDS 3 % (0-6); EOSINOPHILS 1 % (0-4); NEUTROPHIL # MANUAL DIFF 3.3 TH/MM3 (1.8-7.7); POLYS (SEG NEUTROPHILS) 67 % (16-70); WBC DIFF SAMPLE 100
[2016-08-23 07:19] LABS: SCAN/DIFF FINAL DIFF MANUAL
[2016-08-23] MEDS: TAMSULOSIN HCL 0.4 MG CAP PO SCH (09:39)
[2016-08-23] MEDS: HYDROCHLOROTHIAZIDE 12.5 MG CAP PO SCH (09:39)
[2016-08-23] MEDS: DOCUSATE SODIUM 100 MG CAP PO SCH ×2 (09:39→21:00)
[2016-08-23] MEDS: LACTOBACILLUS ACIDOPHILUS TAB PO SCH ×2 (09:39→20:56)
[2016-08-23] MEDS: SODIUM CHLORIDE 0.9% FLUSH 10 ML FLUSH IV FLUSH SCH ×2 (09:39→19:50)
[2016-08-23] MEDS: LOSARTAN 50 MG TAB PO SCH (09:39)
[2016-08-23] MEDS: amLODIPine BESYLATE 5 MG TAB PO SCH (09:40)
[2016-08-23] MEDS: INSULIN DETEMIR 100 UNITS/ML VIAL SQ SCH ×2 (09:40→21:04)
--- NOTE | 2016-08-23 11:47 | HHI.PR ---
Subjective Remarks Follow up for sepsis due to UTI, tachycardia. Mr. Perkins is doing well. Slept well, no acute concerns. and daughter at bedside. No fever, chills. Ambulating well. Objective Vitals Vital Signs Date Time Temp Pulse Resp B/P Pulse Ox O2 Delivery O2 Flow Rate FiO2 08/23/16 08:00 98.1 102 28 146/78 96 08/23/16 07:00 100 28 143/74 08/23/16 06:00 98 28 137/73 08/23/16 06:00 98 08/23/16 05:01 99 22 161/72 08/23/16 04:00 98 08/23/16 04:00 98.4 100 25 148/65 93 08/23/16 03:00 98 27 136/70 08/23/16 02:00 98 29 141/70 08/23/16 02:00 98 08/23/16 01:00 100 24 139/75 08/23/16 00:00 98.2 98 28 136/74 95 08/23/16 00:00 98 08/22/16 23:00 102 28 135/77 08/22/16 22:00 98 26 139/73 08/22/16 22:00 98 08/22/16 21:00 94 28 131/70 08/22/16 20:00 98.0 100 26 111/67 94 08/22/16 20:00 101 08/22/16 19:24 100 26 108/65 08/22/16 19:00 102 24 114/65 08/22/16 18:00 94 34 124/68 08/22/16 18:00 94 08/22/16 17:00 98.1 98 30 120/73 08/22/16 16:00 100 08/22/16 16:00 100 27 125/74 08/22/16 15:00 106 34 118/76 08/22/16 14:00 114 24 140/77 08/22/16 14:00 114 08/22/16 13:00 116 16 149/78 08/22/16 12:00 100.6 118 13 157/82 08/22/16 12:00 118 I/O 08/22/16 08/22/16 08/22/16 08/23/16 08/23/16 08/23/16 07:00 15:00 23:00 07:00 15:00 23:00 Intake Total 2080 ml 1299 ml 1515 ml 940 ml Output Total 800 ml 750 ml 650 ml 1450 ml Balance 1280 ml 549 ml 865 ml -510 ml Intake Oral 480 ml 520 ml 700 ml 220 ml IV Total 1600 ml 779 ml 815 ml 720 ml Output Urine Total 800 ml 750 ml 650 ml 1450 ml # Bowel Movements 0 0 1 Result Diagram: 08/23/16 0620 08/23/16 0620 Imaging Last Impressions Chest X-Ray 08/20/16 1101 Signed Impressions: Service Date/Time: August 11:20 - CONCLUSION: 1. No acute cardiopulmonary disease. 2. Elevation of the right hemidiaphragm. Walter Morris MD Lower Extremity Ultrasound 08/20/16 0000 Signed Impressions: Service Date/Time: August 12:02 - CONCLUSION: No evidence of deep venous thrombosis within the lower extremities. Walter Morris MD Objective Remarks GENERAL: AOX3, NAD. SKIN: Warm and dry. HEAD: Normocephalic. EYES: No scleral icterus. No injection or drainage. NECK: Supple, trachea midline. No JVD or lymphadenopathy. CARDIOVASCULAR: Tachycardia, regular rhythm without murmurs, gallops, or rubs. RESPIRATORY: Breath sounds equal bilaterally. No accessory muscle use. GASTROINTESTINAL: Abdomen soft, non-tender, nondistended. MUSCULOSKELETAL: No cyanosis, or edema. BACK: Nontender without obvious deformity. No CVA tenderness. Procedures None. A/P Problem List: (1) UTI (urinary tract infection) ICD Code: N39.0 Status: Acute (2) Sepsis ICD Code: A41.9 Status: Acute Assessment and Plan This is a 66-year-old male who presents to emergency room with UTI symptoms. Also meets criteria for sepsis. He had recent MRI/US fusion transrectal prostate biopsy last Wednesday08/17/2016 in [place]. - Sepsis secondary to UTI - Urinary tract infection due to GNR. - Urine cx growing E. Coli sensitive to Ceftriaxone but resistant to Cipro - Cipro discontinued and currently on Ceftriaxone 2g Q24hrs. - Supraventricular tachycardia - Patient takes Diltiazem 360mg Qday. Will start Diltiazem CD 300mg Qday today. D/C short acting CCB - Also start metoprolol 12.5mg Q8hrs. - Urinary retention - Tamsulosin 0.4mg Qday. - Hypertension - Will continue ARB-HCTZ combination as well as Amlodipine 5mg Qday. - Continue PRN Clonidine and Hydralazine. - Hyperlipidemia - Continue atorvastatin 20 mg daily. - Diabetes mellitus - Continue Levemir 40 units twice a day - Continue sliding scale insulin. - Discontinue metformin for now. Patient may need contrast enhanced imaging studies. Full code. Lovenox. Discharge plan: Tentative plan to discharge patient home tomorrow on oral Abx. Problem Qualifiers (1) UTI (urinary tract infection): Qualified Code: N30.01 - Acute cystitis with hematuria (2) Sepsis: Qualified Code: A41.9 - Sepsis, due to unspecified organism Silverio Smith DO Aug 23, 2016 11:47 am
[2016-08-23] MEDS ORDERED: PILL SPLITTER OTHER PRN (12:15)
[2016-08-23] MEDS: DILTIAZEM-CD 300 MG CAP ER PO SCH (13:11)
[2016-08-23] MEDS: ENOXAPARIN SODIUM 40 MG/0.4 ML SYRINGE SQ SCH (14:00)
[2016-08-23] MEDS: METOPROLOL TARTRATE 25 MG TAB PO SCH ×2 (14:09→20:57)
[2016-08-23] MEDS: ATORVASTATIN 20 MG TAB PO SCH (20:57)
[2016-08-23] MEDS: IBUPROFEN 600 MG TAB PO PRN (20:57)
[2016-08-23] MEDS: cefTRIAXone INJ 2,000 MG in SODIUM CHLORIDE 0.9% INJ 100 ML IV SCH (20:58)
--- NOTE | 2016-08-23 22:49 | HHI.IDPN ---
Subjective Subjective Remarks ID FU DR RUBIO Antibiotics [facility] Lines PIV Allergies: Coded Allergies: Morphine (Verified Adverse Reaction, Intermediate, Tachycardia, NV, ) Review of Systems Constitutional Constitutional Remarks NO FEVER OR CHILLS HE HAD A GOOD BM TODAY X 2 AND IS FEELING BETTER NO NVD NO ABD PAIN NO COUGH OR SOB MOOD IS GOOD Genitourinary Genitourinary: Frequency, Dysuria Genitorurinary Remarks CATHETER REMOVED TODAY BUT STILL HAVING SOME DYSURIA AND FREQUENCY Objective . Vital Signs Date Time Temp Pulse Resp B/P Pulse Ox O2 Delivery O2 Flow Rate FiO2 08/23/16 21:20 98.9 99 16 164/90 94 08/23/16 17:00 146/83 08/23/16 16:00 106 08/23/16 15:00 98.8 106 20 146/92 96 08/23/16 15:00 106 08/23/16 13:00 102 27 147/80 08/23/16 12:00 98.1 102 28 160/85 08/23/16 11:00 120 35 159/93 08/23/16 10:00 124 28 151/86 08/23/16 09:00 108 31 151/72 08/23/16 08:00 98.1 102 28 146/78 96 08/23/16 08:00 103 08/23/16 07:00 100 28 143/74 08/23/16 06:00 98 28 137/73 08/23/16 06:00 98 08/23/16 05:01 99 22 161/72 08/23/16 04:00 98 08/23/16 04:00 98.4 100 25 148/65 93 08/23/16 03:00 98 27 136/70 08/23/16 02:00 98 29 141/70 08/23/16 02:00 98 08/23/16 01:00 100 24 139/75 08/23/16 00:00 98.2 98 28 136/74 95 08/23/16 00:00 98 08/22/16 23:00 102 28 135/77 08/22/16 08/22/16 08/23/16 15:00 23:00 07:00 Intake Total 1299 ml 1515 ml 940 ml Output Total 750 ml 650 ml 1450 ml Balance 549 ml 865 ml -510 ml Intake Oral 520 ml 700 ml 220 ml IV Total 779 ml 815 ml 720 ml Output Urine Total 750 ml 650 ml 1450 ml # Bowel Movements 0 0 1 . Laboratory Tests Test 08/23/16 06:20 White Blood Count 4.7 TH/MM3 Red Blood Count 4.46 MIL/MM3 Hemoglobin 13.8 GM/DL Hematocrit 40.3 % Mean Corpuscular Volume 90.4 FL Mean Corpuscular Hemoglobin 30.9 PG Mean Corpuscular Hemoglobin 34.2 % Concent Red Cell Distribution Width 13.7 % Platelet Count 148 TH/MM3 Mean Platelet Volume 8.0 FL Neutrophils (%) (Auto) 69.9 % Lymphocytes (%) (Auto) 15.3 % Monocytes (%) (Auto) 13.5 % Eosinophils (%) (Auto) 0.6 % Basophils (%) (Auto) 0.7 % Neutrophils # (Auto) 3.4 TH/MM3 Lymphocytes # (Auto) 0.7 TH/MM3 Monocytes # (Auto) 0.6 TH/MM3 Eosinophils # (Auto) 0.0 TH/MM3 Basophils # (Auto) 0.0 TH/MM3 CBC Comment AUTO DIFF Differential Total Cells 100 Counted Neutrophils % (Manual) 67 % Band Neutrophils % 3 % Lymphocytes % 14 % Monocytes % 15 % Eosinophils % 1 % Neutrophils # (Manual) 3.3 TH/MM3 Differential Comment FINAL DIFF MANUAL Laboratory Tests Test 08/23/16 06:20 Sodium Level 141 MEQ/L Potassium Level 3.4 MEQ/L Chloride Level 105 MEQ/L Carbon Dioxide Level 28.5 MEQ/L Anion Gap 8 MEQ/L Blood Urea Nitrogen 12 MG/DL Creatinine 0.62 MG/DL Estimat Glomerular Filtration 130 ML/MIN Rate Random Glucose 129 MG/DL Calcium Level 8.3 MG/DL Microbiology Date/Time Procedure Status Source Growth 08/21/16 21:30 MRSA Surveillance Culture - Final Complete Nasopharyngeal NO MRSA ISOLATED 08/22/16 22:00 Urine Culture - Preliminary Resulted Urine Catheterized Urine NO GROWTH IN 24 HOURS. Physical Exam PT AWAKE SITTING UP AT SIDE OF THE BED WITH FAMILY VISITING GENERAL: NAD, AWAKE OX3 HEENT: PERRL NS NO JVD CHEST: CARDIAC RRR ABD : SOFT ROUND ACTIVE EXT : NO EDEMA Assessment & Plan Diagnosis: (1) UTI (urinary tract infection) (2) Sepsis (3) E-coli UTI Plan: REPEAT UA ORDERED TODAY WILL FU PLAN TO CONTINUE [facility] SHOULD BE ABLE TO DC ON KEFLEX X 7-10DAYS Problem Qualifiers (1) UTI (urinary tract infection): Qualified Code: N30.01 - Acute cystitis with hematuria (2) Sepsis: Qualified Code: A41.9 - Sepsis, due to unspecified organism Rose Vieira Aug 23, 2016 22:49
[2016-08-24] VITALS (7 sets, daily range): BP systolic 136–156; BP diastolic 79–90; PULSE 88–98; RESP 18–20; TEMP 98–98.5; O2SAT 95–96
[2016-08-24] MEDS: CHLORHEXIDINE GLUCONATE 2 % 1 PACK (2 CLOTHS)(taper/protocol) TOPICAL SCH (04:00)
[2016-08-24] MEDS: METOPROLOL TARTRATE 25 MG TAB PO SCH ×3 (05:56→21:18)
[2016-08-24] MEDS: SODIUM CHLOR 0.9% 1000 ML INJ 1,000 ML IV SCH (05:57)
[2016-08-24] MEDS: INSULIN ASPART SUPPLEMENTAL SCALE SQ SCH ×3 (05:57→21:17)
--- NOTE | 2016-08-24 07:44 | HHI.IDPN ---
Subjective Subjective Remarks Feels better Still some discomfort while passing urine- some urgency No fever since 08/22 Intermittently tachycardic Antibiotics ROCEPHIN Lines PIV Past Medical History History of hyperlipidemia, diabetes mellitus and hypertension Past Surgical History Hernia repair with transposition of muscles from bilateral thighs Recent hip replacement Allergies: Coded Allergies: Morphine (Verified Adverse Reaction, Intermediate, Tachycardia, NV, ) Review of Systems Constitutional Constitutional Remarks No fever with chills Objective . Vital Signs Date Time Temp Pulse Resp B/P Pulse Ox O2 Delivery O2 Flow Rate FiO2 08/24/16 05:12 98.0 88 20 148/79 96 08/23/16 21:57 18 08/23/16 21:20 98.9 99 16 164/90 94 08/23/16 20:00 118 08/23/16 17:00 146/83 08/23/16 16:00 106 08/23/16 15:00 98.8 106 20 146/92 96 08/23/16 15:00 106 08/23/16 13:00 102 27 147/80 08/23/16 12:00 98.1 102 28 160/85 08/23/16 11:00 120 35 159/93 08/23/16 10:00 124 28 151/86 08/23/16 09:00 108 31 151/72 08/23/16 08:00 98.1 102 28 146/78 96 08/23/16 08:00 103 08/23/16 08/23/16 08/24/16 15:00 23:00 07:00 Intake Total 750 ml 1241 ml Output Total 2150 ml 1050 ml 450 ml Balance -1400 ml -1050 ml 791 ml Intake Oral 750 ml IV Total 1241 ml Output Urine Total 2150 ml 1050 ml 450 ml # Bowel Movements 2 1 1 . Laboratory Tests Test 08/23/16 06:20 White Blood Count 4.7 TH/MM3 Red Blood Count 4.46 MIL/MM3 Hemoglobin 13.8 GM/DL Hematocrit 40.3 % Mean Corpuscular Volume 90.4 FL Mean Corpuscular Hemoglobin 30.9 PG Mean Corpuscular Hemoglobin 34.2 % Concent Red Cell Distribution Width 13.7 % Platelet Count 148 TH/MM3 Mean Platelet Volume 8.0 FL Neutrophils (%) (Auto) 69.9 % Lymphocytes (%) (Auto) 15.3 % Monocytes (%) (Auto) 13.5 % Eosinophils (%) (Auto) 0.6 % Basophils (%) (Auto) 0.7 % Neutrophils # (Auto) 3.4 TH/MM3 Lymphocytes # (Auto) 0.7 TH/MM3 Monocytes # (Auto) 0.6 TH/MM3 Eosinophils # (Auto) 0.0 TH/MM3 Basophils # (Auto) 0.0 TH/MM3 CBC Comment AUTO DIFF Differential Total Cells 100 Counted Neutrophils % (Manual) 67 % Band Neutrophils % 3 % Lymphocytes % 14 % Monocytes % 15 % Eosinophils % 1 % Neutrophils # (Manual) 3.3 TH/MM3 Differential Comment FINAL DIFF MANUAL Laboratory Tests Test 08/23/16 06:20 Sodium Level 141 MEQ/L Potassium Level 3.4 MEQ/L Chloride Level 105 MEQ/L Carbon Dioxide Level 28.5 MEQ/L Anion Gap 8 MEQ/L Blood Urea Nitrogen 12 MG/DL Creatinine 0.62 MG/DL Estimat Glomerular Filtration 130 ML/MIN Rate Random Glucose 129 MG/DL Calcium Level 8.3 MG/DL Microbiology Date/Time Procedure Status Source Growth 08/21/16 21:30 MRSA Surveillance Culture - Final Complete Nasopharyngeal NO MRSA ISOLATED 08/22/16 22:00 Urine Culture - Preliminary Resulted Urine Catheterized Urine NO GROWTH IN 24 HOURS. Physical Exam GENERAL: This is an obese patient, lying flat in bed SKIN: No rashes, ecchymoses or lesions. Cool and dry. HEAD: Atraumatic. Normocephalic. No temporal or scalp tenderness. EYES: Pupils equal round and reactive. Extraocular motions intact. No scleral icterus. No injection or drainage. ENT: Nose without bleeding, purulent drainage or septal hematoma. Throat without erythema, tonsillar hypertrophy or exudate. Uvula midline. Airway patent. NECK: Trachea midline. No JVD or lymphadenopathy. Supple, nontender, no meningeal signs. CARDIOVASCULAR: Tachycardia without murmurs, gallops, or rubs. RESPIRATORY: . Breath sounds equal bilaterally. No rales, or rhonchi. Occasional wheezes GASTROINTESTINAL: Abdomen soft, non-tender, nondistended. No hepato-splenomegaly , or palpable masses. No guarding. MUSCULOSKELETAL: Extremities without clubbing, cyanosis, or edema. No joint tenderness, effusion, or edema noted. No calf tenderness. Negative Homans sign bilaterally. NEUROLOGICAL: Awake and alert. Cranial nerves II through XII intact. Motor and sensory grossly within normal limits. Five out of 5 muscle strength in all muscle groups. Normal speech. Assessment & Plan Diagnosis: (1) Sepsis (2) UTI (urinary tract infection) Plan: Reviewed cultures Blood cultures negative Repeat urine culture neg at 24 hrs but UA is abnormal Considering how sick patient was and recent hip replacement - continue IV antibiotics with close monitoring for anothetr 24 hrs On discharge can take Cefuroxime 500 mg po bid to finish a 2 week course. Problem Qualifiers (1) Sepsis: Qualified Code: A41.51 - Sepsis due to Escherichia coli (2) UTI (urinary tract infection): Qualified Code: N30.01 - Acute cystitis with hematuria Pratima Robison MD Aug 24, 2016 07:44
--- NOTE | 2016-08-24 09:14 | HHI.PR ---
Subjective Remarks Follow up for sepsis due to UTI, tachycardia. Patient is doing much better. Had a good night. No acute concerns. No fever, chills. Objective Vitals Vital Signs Date Time Temp Pulse Resp B/P Pulse Ox O2 Delivery O2 Flow Rate FiO2 08/24/16 07:30 98.2 88 20 136/82 95 08/24/16 05:12 98.0 88 20 148/79 96 08/23/16 21:57 18 08/23/16 21:20 98.9 99 16 164/90 94 08/23/16 20:00 118 08/23/16 17:00 146/83 08/23/16 16:00 106 08/23/16 15:00 98.8 106 20 146/92 96 08/23/16 15:00 106 08/23/16 13:00 102 27 147/80 08/23/16 12:00 98.1 102 28 160/85 08/23/16 11:00 120 35 159/93 08/23/16 10:00 124 28 151/86 I/O 08/23/16 08/23/16 08/23/16 08/24/16 08/24/16 08/24/16 07:00 15:00 23:00 07:00 15:00 23:00 Intake Total 940 ml 750 ml 1241 ml Output Total 1450 ml 2150 ml 1050 ml 450 ml Balance -510 ml -1400 ml -1050 ml 791 ml Intake Oral 220 ml 750 ml IV Total 720 ml 1241 ml Output Urine Total 1450 ml 2150 ml 1050 ml 450 ml # Bowel Movements 1 2 1 1 Result Diagram: 08/23/16 0620 08/23/16 0620 Imaging Last Impressions Chest X-Ray 08/20/16 1101 Signed Impressions: Service Date/Time: August 11:20 - CONCLUSION: 1. No acute cardiopulmonary disease. 2. Elevation of the right hemidiaphragm. Walter Morris MD Lower Extremity Ultrasound 08/20/16 0000 Signed Impressions: Service Date/Time: August 12:02 - CONCLUSION: No evidence of deep venous thrombosis within the lower extremities. Walter Morris MD Objective Remarks GENERAL: AOX3, NAD. SKIN: Warm and dry. HEAD: Normocephalic. EYES: No scleral icterus. No injection or drainage. NECK: Supple, trachea midline. No JVD or lymphadenopathy. CARDIOVASCULAR: Tachycardia, regular rhythm without murmurs, gallops, or rubs. RESPIRATORY: Breath sounds equal bilaterally. No accessory muscle use. GASTROINTESTINAL: Abdomen soft, non-tender, nondistended. MUSCULOSKELETAL: No cyanosis, or edema. BACK: Nontender without obvious deformity. No CVA tenderness. Procedures None. A/P Problem List: (1) UTI (urinary tract infection) ICD Code: N39.0 Status: Acute (2) Sepsis ICD Code: A41.9 Status: Acute Assessment and Plan This is a 66-year-old male who presents to emergency room with UTI symptoms. Also meets criteria for sepsis. He had recent MRI/US fusion transrectal prostate biopsy last Wednesday08/17/2016 in [place]. - Sepsis secondary to Prostatitis. - Acute Prostatitis. - Urinary tract infection due to GNR. - Urine cx growing E. Coli sensitive to Ceftriaxone but resistant to Cipro - Cipro discontinued and currently on Ceftriaxone 2g Q24hrs. - Cefuroxime for 2 weeks on discharge per ID recommendations. - Likely discharge home tomorrow 08/25/2016. - Supraventricular tachycardia - Patient takes Diltiazem 360mg Qday. Will start Diltiazem CD 300mg Qday today. D/C short acting CCB - Also Continue metoprolol 12.5mg Q8hrs. - Urinary retention - Tamsulosin 0.4mg Qday. - Hypertension - Will continue ARB-HCTZ combination as well as Amlodipine 5mg Qday. - Continue PRN Clonidine and Hydralazine. - Hyperlipidemia - Continue atorvastatin 20 mg daily. - Diabetes mellitus - Continue Levemir 40 units twice a day - Continue sliding scale insulin. - Discontinue metformin for now. Patient may need contrast enhanced imaging studies. Full code. Lovenox. Problem Qualifiers (1) UTI (urinary tract infection): Qualified Code: N30.01 - Acute cystitis with hematuria (2) Sepsis: Qualified Code: A41.51 - Sepsis due to Escherichia coli Silverio Smith DO Aug 24, 2016 9:13 am
[2016-08-24] MEDS ORDERED: TAMS5CAP PO (09:16)
[2016-08-24] MEDS ORDERED: METO25TA3 PO (09:16)
[2016-08-24] MEDS ORDERED: CEFU1TAB20 PO (09:17)
[2016-08-24] MEDS: LACTOBACILLUS ACIDOPHILUS TAB PO SCH ×2 (10:01→21:19)
[2016-08-24] MEDS: DILTIAZEM-CD 300 MG CAP ER PO SCH (10:01)
[2016-08-24] MEDS: LOSARTAN 50 MG TAB PO SCH (10:02)
[2016-08-24] MEDS: HYDROCHLOROTHIAZIDE 12.5 MG CAP PO SCH (10:02)
[2016-08-24] MEDS: amLODIPine BESYLATE 5 MG TAB PO SCH (10:02)
[2016-08-24] MEDS: INSULIN DETEMIR 100 UNITS/ML VIAL SQ SCH ×2 (10:03→21:17)
[2016-08-24] MEDS: SODIUM CHLORIDE 0.9% FLUSH 10 ML FLUSH IV FLUSH SCH ×2 (10:04→21:00)
[2016-08-24] MEDS: TAMSULOSIN HCL 0.4 MG CAP PO SCH (10:08)
[2016-08-24] MEDS: ENOXAPARIN SODIUM 40 MG/0.4 ML SYRINGE SQ SCH (14:27)
[2016-08-24] MEDS: DOCUSATE SODIUM 100 MG CAP PO SCH ×2 (21:00→21:19)
[2016-08-24] MEDS: ATORVASTATIN 20 MG TAB PO SCH (21:19)
[2016-08-24] MEDS: cefTRIAXone INJ 2,000 MG in SODIUM CHLORIDE 0.9% INJ 100 ML IV SCH (21:20)
[2016-08-25] MEDS: ACETAMINOPHEN/HYDROcodone 325 MG/7.5 MG TAB PO PRN (01:37)
[2016-08-25 04:00] VITALS: BP 133/80; PULSE 86; RESP 16; TEMP 97.5; O2SAT 97
[2016-08-25] MEDS: CHLORHEXIDINE GLUCONATE 2 % 1 PACK (2 CLOTHS)(taper/protocol) TOPICAL SCH (04:00)
[2016-08-25] MEDS: INSULIN ASPART SUPPLEMENTAL SCALE SQ SCH (05:47)
[2016-08-25] MEDS: METOPROLOL TARTRATE 25 MG TAB PO SCH (05:47)
[2016-08-25 08:00] VITALS: BP 138/81; PULSE 84; RESP 18; TEMP 97.5; O2SAT 97
[2016-08-25] MEDS: INSULIN DETEMIR 100 UNITS/ML VIAL SQ SCH (08:34)
[2016-08-25] MEDS: DILTIAZEM-CD 300 MG CAP ER PO SCH (08:34)
[2016-08-25] MEDS: TAMSULOSIN HCL 0.4 MG CAP PO SCH (08:34)
[2016-08-25] MEDS: LACTOBACILLUS ACIDOPHILUS TAB PO SCH (08:34)
[2016-08-25] MEDS: HYDROCHLOROTHIAZIDE 12.5 MG CAP PO SCH (08:35)
[2016-08-25] MEDS: LOSARTAN 50 MG TAB PO SCH (08:35)
[2016-08-25] MEDS: SODIUM CHLORIDE 0.9% FLUSH 10 ML FLUSH IV FLUSH SCH (08:35)
[2016-08-25] MEDS: amLODIPine BESYLATE 5 MG TAB PO SCH (08:35)
[2016-08-25] MEDS ORDERED: CEFU1TAB20 PO (09:20)
[2016-08-25] MEDS ORDERED: METO25TA3 PO (09:20)
[2016-08-25] MEDS ORDERED: TAMS5CAP PO (09:20)
[2016-08-25] MEDS ORDERED: HYDR-3288 PO (09:20)
[2016-08-25] MEDS ORDERED: OXYB5TAB10 PO (09:22)
--- NOTE | 2016-08-25 09:25 | HHI.DS ---
Discharge Summary Admission Date Aug 20, 2016 at 12:42 pm Discharge Date: Aug 25, 2016 Admitting Diagnosis Sepsis from UTI (1) UTI (urinary tract infection) ICD Code: N39.0 (2) Sepsis ICD Code: A41.9 (3) Acute prostatitis ICD Code: N41.0 Diagnosis: Principal Procedures None. Brief History - From Admission This is a 66-year-old male who presents to emergency room with UTI symptoms. Patient reports that he has been having dysuria, urinary urgency and frequency. He is here in [place] from [place] because of family situation. Patient reports that on Wednesday, he had an MRI/US fusion transrectal prostate biopsy while in [place] for evaluation of prostate cancer secondary to elevated PSA and strong family history of prostate cancer. Patient reports that prior to his surgery, he was given po and IV antibiotics as he did have a recent right hip surgery in April. The following day he flew to [place] and noted bilateral lower extremity cramping. The next day he did not feel well and laid in bed all day associated with nausea, dizziness and achiness. He had fever and chills and took ibuprofen which provided temporary relief. Denies abdominal , back and right hip pain. He went to urgent care center this morning and was told that he had a "raging UTI" and that he would have to go to the hospital for IV antibiotics. CBC/BMP: 08/23/16 0620 08/23/16 0620 Significant Findings Laboratory Tests Test 08/22/16 08/23/16 22:00 06:20 Urine Glucose (UA) 1000 OR GREATER mg/dL (NEG) Urine Occult Blood LARGE (NEG) Urine Leukocyte Esterase TRACE (NEG) Urine RBC 50-99 /hpf (0-3) Urine WBC 9-14 /hpf (0-5) Red Blood Count 4.46 MIL/MM3 (4.50-5.90) Platelet Count 148 TH/MM3 (150-450) Monocytes (%) (Auto) 13.5 % (0.0-8.0) Lymphocytes # (Auto) 0.7 TH/MM3 (1.0-4.8) Monocytes % 15 % (0-8) Potassium Level 3.4 MEQ/L (3.5-5.1) Random Glucose 129 MG/DL (74-106) Calcium Level 8.3 MG/DL (8.5-10.1) Imaging Last Impressions Chest X-Ray 08/20/16 1101 Signed Impressions: Service Date/Time: August 11:20 - CONCLUSION: 1. No acute cardiopulmonary disease. 2. Elevation of the right hemidiaphragm. Walter Morris MD Lower Extremity Ultrasound 08/20/16 0000 Signed Impressions: Service Date/Time: August 12:02 - CONCLUSION: No evidence of deep venous thrombosis within the lower extremities. Walter Morris MD PE at Discharge GENERAL: AOX3, NAD. SKIN: Warm and dry. HEAD: Normocephalic. EYES: No scleral icterus. No injection or drainage. NECK: Supple, trachea midline. No JVD or lymphadenopathy. CARDIOVASCULAR: Tachycardia, regular rhythm without murmurs, gallops, or rubs. RESPIRATORY: Breath sounds equal bilaterally. No accessory muscle use. GASTROINTESTINAL: Abdomen soft, non-tender, nondistended. MUSCULOSKELETAL: No cyanosis, or edema. BACK: Nontender without obvious deformity. No CVA tenderness. Pt update on day of discharge Patient is doing well. Had bladder spasm overnight. No fever, chills. Hospital Course This is a 66-year-old male who presents to emergency room with UTI symptoms. Also meets criteria for sepsis. He had recent MRI/US fusion transrectal prostate biopsy last Wednesday08/17/2016 in [place]. - Sepsis secondary to Prostatitis. - Acute Prostatitis. - Urine cx growing E. Coli sensitive to Ceftriaxone but resistant to Cipro - Cipro discontinued and currently on Ceftriaxone 2g Q24hrs. - Cefuroxime for 2 weeks on discharge per ID recommendations. - Condom cath and urinary container on discharge per patient request. - Supraventricular tachycardia - Patient takes Diltiazem 360mg Qday which can be continued on discharge. - Continue metoprolol on discharge. - Urinary retention - Tamsulosin 0.4mg Qday. - Hypertension - Continue home meds. - Hyperlipidemia - Continue atorvastatin 20 mg daily. - Diabetes mellitus - Continue metformin and insulin on discharge. Pt Condition on Discharge: Good Discharge Disposition: Discharge Home Discharge Time: > 30 minutes Discharge Instructions DIET: Follow Instructions for: As Tolerated, No Restrictions Activities you can perform: Regular-No Restrictions Follow up Referrals: PCP Follow-up - 1 Week Urology - 10 Days New Medications: Cefuroxime (Cefuroxime) 500 Mg Tab 500 MG PO BID Infection #28 Ref 0 TAB Hydrocodone-Acetaminophen ([place]) 7.5-325 mg Tab 1 TAB PO Q6H PRN PAIN #20 Ref 0 TAB Oxybutynin (Ditropan) 5 Mg Tab 5 MG PO Q8HR Urinary Symptom Managemen #90 Ref 0 TAB Metoprolol Tartrate (Metoprolol Tartrate) 25 Mg Tab 12.5 MG PO BID Tachycardia #30 TAB Tamsulosin (Flomax) 0.4 Mg Cap 0.4 MG PO DAILY BPH #30 CAP Continued Medications: Atorvastatin (Atorvastatin) 20 Mg Tab 20 MG PO HS Cholesterol Management #30 Ref 0 TAB Diltiazem ER 24 HR (Matzim [place]) 360 Mg Aashish 360 MG PO DAILY #30 Ref 0 TAB Insulin Detemir Inj (Levemir Inj) 1,000 unit/ 10 ML Vial 40 UNITS SQ BID Do not mix with any other Insulin. Blood Sugar Management Ref 0 VIAL Losartan-Hydrochlorothiazide (Losartan-Hydrochlorothiazide) 50-12.5 Mg Tab 1 TAB PO DAILY Blood Pressure Management #30 Ref 0 TAB Metformin (Metformin) 500 Mg Tab 500 MG PO QID With meals Blood Sugar Management #90 Ref 0 TAB Discontinued Medications: Olmesartan-Hydrochlorothiazide (Benicar Hct) 20-12.5 mg Tab 1 TAB PO DAILY Blood Pressure Management #30 Ref 0 TAB Silverio Smith DO Aug 25, 2016 09:25
== END 2016-08-25 11:00 | disposition home or self-care (01) | DRG 872 ==
LOC: PHED 09:52 → PHEDA 12:42 → PH3A 14:06 → PHICU 08-21 16:55 → PH3B 08-23 14:56
PROVIDERS: ADMIT Hospitalist; ATTEND Hospitalist
DX: A41.51 Sepsis due to Escherichia coli [E. coli] (principal); I47.1 Supraventricular tachycardia; N41.0 Acute prostatitis; Z16.23 Resistance to quinolones and fluoroquinolones; R33.9 Retention of urine, unspecified; I10 Essential (primary) hypertension; E78.5 Hyperlipidemia, unspecified; E11.9 Type 2 diabetes mellitus without complications; Z79.84 Long term (current) use of oral hypoglycemic drugs; Z79.4 Long term (current) use of insulin; E66.9 Obesity, unspecified; Z68.35 Body mass index [BMI] 35.0-35.9, adult; Z98.890 Other specified postprocedural states; Z80.42 Family history of malignant neoplasm of prostate; Z96.649 Presence of unspecified artificial hip joint
CPT/HCPCS: 71010; 80048; 80053; 81001; 82948; 83605; 85007; 85025; 85027; 87040; 87077; 87081; 87086; 87186; 87804; 93970; 96365; J0696; J0744; J1650; J1815; J2543; J7030